=== PATIENT | female | born 1950 | race Caucasian/White ===

== ENCOUNTER → 2022-10-13 | Outpatient (CLI) | payer MEDICARE ==
--- NOTE | 2022-10-13 11:42 | FL ---
ESOPHOGRAM. HISTORY: Dysphagia Esophagram was performed per the air contrast technique. The patient swallowed barium and effervesce nt crystals without difficulty or delay. Esophageal peristalsis and motility appear to be within normal limits. There is no evidence for filling defect, mass or diverticulum. Small reducible sliding type hiatal hernia noted. Subsequently single contrast cervical esophagram was performed which fails demonstrate evidence for a spiration penetration or mass. IMPRESSION: Small reducible sliding type hiatal hernia noted.
== END | disposition home or self-care (01) ==
LOC: RADUSWWP 10:52
PROVIDERS: ATTEND Surgery Plastic and Reconstructive Surgery
DX: K44.9 Diaphragmatic hernia without obstruction or gangrene (principal)
CPT/HCPCS: 74220

== ENCOUNTER 2022-11-08 06:19 | Day surgery (SDC) | payer MEDICARE ==
[2022-11-04 11:32] VITALS: BMI 30.9
[~2022-11-08 06:19] MED LIST: LACTATED RINGERS 1,000 ML IV SCH; LIDOCAINE 1% (10MG/ML) FOR IV START INTRADERMA PRN
[2022-11-08] MEDS ORDERED: PROPOFOL 10 MG/ML 20 ML VIAL IV ONE (07:15)
[2022-11-08] MEDS ORDERED: LIDOCAINE 2% INJ 20 MG/ML (2 ML VIAL) ONE (07:15)
[2022-11-08 07:19] VITALS: RESP 16; TEMP 98
--- NOTE | 2022-11-08 07:19 | P.GSHP ---
History of Present Illness H&P Date: 11/08/22 CHIEF COMPLAINT: GERD HISTORY OF PRESENT ILLNESS: The patient is a 72-year-old female who presents reports gastroesophageal reflux disease. Upper endoscopy was offered for further evaluation and management. PAST MEDICAL HISTORY: Please see list. PAST SURGICAL HISTORY: Please see list. MEDICATIONS: Please see list. ALLERGIES: Please see list. SOCIAL HISTORY: No illicit drug use FAMILY HISTORY: No reports of Crohn disease or ulcerative colitis. REVIEW OF ORGAN SYSTEMS: CONSTITUTIONAL: No reports of fevers or chills. GI: Denies any blood in stools or constipation. PHYSICAL EXAM: VITAL SIGNS: Stable GENERAL: Well-developed and pleasant in no acute distress. HEENT: No scleral icterus. Extraocular movements grossly intact. Moist buccal mucosa. NECK: Supple without lymphadenopathy. CHEST: Unlabored respirations. Equal bilateral excursions. CARDIOVASCULAR: Regular rate and rhythm. Distal 2+ pulses. ABDOMEN: Soft, nondistended. MUSCULOSKELETAL: No clubbing, cyanosis, or edema. ASSESSMENT: 1. Gastroesophageal reflux disease PLAN: 1. Recommend proceeding with an upper endoscopy Past Medical History Past Medical History: Chest Pain / Angina, Osteoarthritis (OA), Syncope Additional Past Medical History / Comment(s): perforated colon from colonscopy History of Any Multi-Drug Resistant Organisms: None Reported Past Surgical History: Appendectomy, Breast Surgery, Cholecystectomy, Hysterectomy, Orthopedic Surgery Additional Past Surgical History / Comment(s): colonoscopy, left knee surg, left breast biopsy, colon repair s/p perforation from last colonscopy Past Anesthesia/Blood Transfusion Reactions: No Reported Reaction Smoking Status: Former smoker - Past Family History Mother History Unknown: Yes Family Medical History: No Reported History Father History Unknown: Yes Family Medical History: No Reported History Medications and Allergies Home Medications Medication Instructions Recorded Confirmed Type Sertraline [Zoloft] 100 mg PO DAILY 02/05/22 11/04/22 History Allergies Allergy/AdvReac Type Severity Reaction Status Date / Time Latex, Natural Rubber Allergy Rash/Hives Verified 11/08/22 06:54 Penicillins Allergy Rash/Hives Verified 11/08/22 06:54 strawberry Allergy Rash/Hives Verified 11/08/22 06:54 all cillins Allergy rash, Uncoded 11/08/22 06:54 nausea,vomiting
--- NOTE | 2022-11-08 07:36 | P.PCN ---
Date of Procedure: 11/08/22 Description of Procedure: PREOPERATIVE DIAGNOSIS: Gastroesophageal reflux disease. Dysphagia POSTOPERATIVE DIAGNOSIS: Gastroesophageal reflux disease. Dysphagia Gastritis. OPERATION: Esophagogastroduodenoscopy with biopsies along antrum, duodenum SURGEON: Ruth Katz MD ANESTHESIA: MAC. INDICATIONS: The patient is a 72-year-old female who presents with reflux disease and dysphagia. Benefits and risks of the procedure were described. Informed consent was obtained. DESCRIPTION: The patient was brought into the endoscopy suite and laid in the left lateral decubitus position. An Olympus gastroscope was passed along the posterior oropharynx down to the distal esophagus where the squamocolumnar junction was encountered at 35 cm from the incisors. The stomach was entered and no bile reflux was found. Additional findings are listed below. Biopsies with cold forceps were obtained of the antrum. The first through third portion of the duodenum was examined. Retroflexion of the scope confirmed Hill grade 2 lower esophageal valve. The squamocolumnar junction demonstrated LA grade B erosive esophagitis. The stomach was desufflated. The patient tolerated the procedure well. FINDINGS: Squamocolumnar junction 35 cm from the incisors. Diaphragmatic hiatus at 35 cm. Hill grade 2 lower esophageal valve. LA grade B erosive esophagitis. Biopsies obtained of the duodenum Chronic gastritis Gastric polyp, 5 mm in antrum biopsy RECOMMENDATIONS: Upper endoscopy as needed. Start omeprazole 40 mg daily for 2 weeks Plan - Discharge Summary New Discharge Prescriptions: New Omeprazole [PriLOSEC] 40 mg PO DAILY #14 cap Continue Sertraline [Zoloft] 100 mg PO DAILY Discharge Medication List Sertraline [Zoloft] 100 mg PO DAILY 02/05/22 [History] Omeprazole [PriLOSEC] 40 mg PO DAILY #14 cap 11/08/22 [Rx] Follow up Appointment(s)/Referral(s): Ruth Katz MD [STAFF PHYSICIAN] - 11/30/22 Patient Instructions/Handouts: Gastritis (DC), Diet for Stomach Ulcers and Gastritis (ED) Discharge Disposition: HOME SELF-CARE
[2022-11-08 07:46] VITALS: BP 106/67; PULSE 58
== END 2022-11-08 08:15 | disposition home or self-care (01) ==
LOC: ORWHC2ENDO 06:19
PROVIDERS: ATTEND Surgery Plastic and Reconstructive Surgery
DX: K29.50 Unspecified chronic gastritis without bleeding (principal); K31.A29 Gastric intestinal metaplasia with dysplasia, unspecified; K21.9 Gastro-esophageal reflux disease without esophagitis; M19.90 Unspecified osteoarthritis, unspecified site; R55 Syncope and collapse; Z90.49 Acquired absence of other specified parts of digestive tract; Z87.891 Personal history of nicotine dependence; Z91.040 Latex allergy status; Z88.0 Allergy status to penicillin
CPT/HCPCS: 88305; 88342; 43239; J2704; J2001

== ENCOUNTER → 2023-08-31 | Outpatient (CLI) | payer MEDICARE ==
[2023-08-31 20:41] LABS: Basophils % (A) 1.4 %; Eosinophils # (A) 0.58 X 10*3/uL (0.04-0.35); Eosinophils % (A) 8.3 %; HCT 41.5 % (37.2-46.3); HGB 13.7 d/dL (12.0-15.0); Lymphocytes # (A) 2.42 X 10*3/uL (0.90-5.00); Lymphocytes % (A) 34.7 %; MCH 28.9 pg (27.0-32.0); MCV 87.6 FL (80.0-97.0); Mean Platelet Volume 10.1 FL (9.5-12.2); Monocytes # (A) 0.53 X 10*3/uL (0.20-1.00); Monocytes % (A) 7.6 %; NRBC Per 100 WBC 0 X 10*3/uL (0.00-0.01); Neutrophils # (A) 3.29 X 10*3/uL (1.80-7.70); Neutrophils % (A) 47.3 %; Platelet Count 271 X 10*3/uL (140-440); RBC 4.74 X 10*6/uL (4.10-5.20); RDW 14.1 % (11.5-14.5); WBC 6.97 X 10*3/uL (4.50-10.00)
[2023-08-31 21:04] LABS: ALT 15 U/L (8-44); AST 49 U/L (13-35); Albumin 3.8 d/dL (3.8-4.9); Alkaline Phosphatase 77 U/L (41-126); BUN/Creat Ratio 18.67 Ratio (12.00-20.00); Blood Urea Nitrogen 22.4 mg/dL (9.0-27.0); Calcium 9.4 mg/dL (8.7-10.3); Carbon Dioxide 20.1 mmol/L (21.6-31.8); Chloride 105 mmol/L (96-109); Globulin 4.2 d/dL (1.6-3.3); Glucose 96 mg/dL (70-110); Sodium 137 mmol/L (135-145); Total Bilirubin 0.5 mg/dL (0.3-1.2)
== END | disposition home or self-care (01) ==
LOC: LABWHC1 13:43
PROVIDERS: ATTEND Family Medicine
DX: F32.A Depression, unspecified (principal)
CPT/HCPCS: 36415; 80053; 85025